=== PATIENT | female | born 1990 | race Caucasian/White ===

== ENCOUNTER 2016-10-16 15:41 | Emergency (ER) | payer OTHER ==
[2016-10-16 16:09] VITALS: BP 114/78
[2016-10-16] MEDS ORDERED: NORCO 5/325 PO ONE (17:16)
[2016-10-16] MEDS ORDERED: FLEXERIL PO ONE (17:16)
[2016-10-16] MEDS ORDERED: TORADOL IM ONE (17:16)
[2016-10-16] MEDS ORDERED: TORADOL ONE (17:33)
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
== END 2016-10-17 05:17 | disposition home or self-care (01) ==
LOC: ED 15:41
DX: M54.2 Cervicalgia (principal); M54.9 Dorsalgia, unspecified; R10.9 Unspecified abdominal pain; V89.2XXA Person injured in unspecified motor-vehicle accident, traffic, initial encounter; Y93.89 Activity, other specified; Y99.9 Unspecified external cause status; Y92.410 Unspecified street and highway as the place of occurrence of the external cause
CPT/HCPCS: 72040; 81025; 96372; 99283; J1885